=== PATIENT | male | born 1940 | race Caucasian/White ===

== ENCOUNTER 2021-08-23 14:47 | Inpatient (IN) | payer MEDICARE, SELFPAY ==
[2021-08-23] VITALS (67 sets, daily range): BP systolic 136–181; BP diastolic 52–77; PULSE 51–81; RESP 8–23; TEMP 36.8–36.9; O2SAT 88–99
--- NOTE | 2021-08-23 15:00 | RT.EKG_ITS ---
APPROVED REPORT Exam: Resting ECG Reason for Exam: rule out stroke Patient Location: E HR:62 bpm ECG Measurements Heart Rate 62 AXIS WY 172 P 71 QRSd 96 QRS 66 QT 387 T 66 QTc 393 Conclusion Sinus rhythm...normal P axis, V-rate 60- 99 Consider left ventricular hypertrophy...(S V1+R V5/V6) >3.50mV
--- NOTE | 2021-08-23 15:15 | DI.CT_ITS ---
Exam(s) CT HEAD WO EXAM: CT HEAD WO CLINICAL HISTORY: facial droop, hx of diplopia. TECHNIQUE: Imaging Protocol: Axial computed tomography images with coronal and sagittal reformatted images were created and reviewed COMPARISON: CR XR CHEST 1V IN DI DEPT from 08/23/2021 FINDINGS: There are no skull fractures nor fluid in the visualized paranasal sinuses. Main acute finding is an area of intra-axial hemorrhage in the left occipital lobe mild surrounding e ana rosa, this hemorrhage measuring approximately 2.7 cm wide by 2.2 cm AP. Area of abnormal hypodensity is seen in the opposite-right occipital lobe which is most probably related to prior infarct. Also area of abnormal hypodensity in the right middle cerebral artery territory involving the right tempor al and parietal lobes. In addition, there is abundant bilateral periventricular hypodensity consiste nt with chronic small vessel disease. No findings in the cerebellar hemispheres nor within the bob and midbrain. IMPRESSION: 1. There is a 2.7 x 2.2 area of intra-axial hemorrhage in the left occipital lobe. Also area of of i nfarction in the right occipital lobe and right middle cerebral artery territory, age indeterminate. 2. Abundant bilateral periventricular hypodensity consistent with chronic small vessel disease. Results called by myself to ER physician RADIATION DOSE DELIVERED: 816.78mGy.cm Total DLP DATA REPOSITORY: All CT scans at this facility are submitted to the National Radiology Data Registry (NRDR) Dose Index Registry (DIR) with the [employer] (ACR). RADIATION OPTIMIZATION: All CT scans at this facility use at least one of these dose optimization te chniques: automated exposure control; mA and/or kV adjustment per patient size (includes targeted exa ms where dose is matched to clinical indication); or iterative reconstruction.
--- NOTE | 2021-08-23 15:17 | DI.RAD_ITS ---
Exam(s) XR CHEST 1V IN DI DEPT EXAM: XR CHEST 1V IN DI DEPT CLINICAL HISTORY: cva. TECHNIQUE: 2D digital imaging was performed. COMPARISON: No exams were available for comparison FINDINGS: Single AP portable view. Heart size is upper normal. The mediastinum is not widened. Lungs are clear. No infiltrates nor obvious pleural effusions. IMPRESSION: No acute pulmonary findings on this single AP portable view of the chest. DATA REPOSITORY: RADIATION DOSE DELIVERED: All CT scans at this facility use at least one of these dose optimization techniques: automated exposure control; mA and/or kV adjustment per patient size (includes targeted e xams where dose is matched to clinical indication); or iterative reconstruction.
--- NOTE | 2021-08-23 15:34 | ED.GENADUL_ITS ---
Discharge Plan Disposition Patient Disposition: [facility] INPATIENT Condition: Serious Discharge Details Clinical Impression: Cerebrovascular accident, hemorrhagic Admit Date/Time: 08/23/21 20:17 Admit Provider: Satish Gentile Attending Provider: Satish Gentile Primary Care Provider: Unknown,Unknown ED Provider: Spike Torre Discharge Data Discharge Date/Time-TO BE ENTERED AT DEPARTURE: 08/23/21 21:42 Medical Decision Making NIH stroke score 1, partial palsy Pending CTA head and neck, unfortunately secondary to time constraints or status, MRI was available for this patient I discussed imaging with the radiologist who recommends CTA head and neck Patient is resting comfortably in room, extremely hard of hearing Agreeable to testing at this time, , in room and interpreting for patient Able to follow basic commands Declines any current diplopia, resolved yesterday per patient Predominant sinus this time and his right sided partial facial droop, specifically nasolabial fold and smile paralysis on right Pending labs EKG does not show evidence of dysrhythmia Resting comfortably in room, maintaining airway Care will be transitioned to Spike Torre MD at 1600 pending cta, labs, and disposition Medical Records Medical records reviewed: Yes I reviewed the patient's medical records. Lab Data Lab results reviewed: Yes I reviewed the patient's lab results. HPI General Date/Time Provider Initiated Documentation: 08/23/21 15:00 . HPI Narrative: this 81-year-old gentleman. Very hard of hearing presents with reports of diplopia which is reportedly horizontal yesterday morning when he awoke which resolved followed by right-sided facial droop today. He denies any weakness or dizziness. Denies any strength or sensation change. Denies any chest pain or shortness of breath. Patient states he otherwise feels well. He denies any difficulty swallowing or change in his speech. He is notably very hard of hearing, this is baseline for him. He denies any chest pain or palpitations. He denies prior history of similar symptoms in the past. He denies any recent head injuries. Denies any neck pain. Denies headache. Related Data Home Medications Medication Instructions Recorded Confirmed Unknown [No Known Home Meds] 08/23/21 08/23/21 Allergies Allergy/AdvReac Type Severity Reaction Status Date / Time No Known Drug Allergies Allergy Unverified 08/23/21 15:07 General Stated Complaint: CVA/TIA ANTONIO: 2 Review of Systems All systems reviewed & are unremarkable except as noted in HPI and below PFSH All Active Problems (Updated 08/24/21 @ 16:35 by Lissette Kimball MD) Diastolic dysfunction (Acute) Pulmonary hypertension (Acute) Aortic regurgitation (Acute) Noncompliance (Acute) Hypertension (Chronic) Stroke (Chronic) Hearing loss (Acute) Cerebrovascular accident, hemorrhagic (Acute) Surgical History Total replacement of hip Family History Mother No problems noted. Father Abdominal aortic aneurysm Sister Neoplasm LUNG Brother Neoplasm LUNG Grandfather No problems noted. Grandfather Neoplasm Grandmother No problems noted. Grandmother No problems noted. Brother Neoplasm THYROID Sister No problems noted. Brother No problems noted. Brother No problems noted. Son No problems noted. Son No problems noted. Son No problems noted. Social History Smoking/Tobacco Use Status: Never Smoking risk assessment performed?: Yes Alcohol Intake: never Substance use type: does not use Do you feel safe at home: Yes Do you feel safe in your relationship?: Yes Exam Const General: cooperative, comfortable and no acute distress HENMT Mouth: tongue normal, moist mucous membranes and no drooling Other: Right-sided facial droop, no eyebrow involvement Uvula midline, maintaining secretions Eyes Pupils: PERRL EOM: EOM intact bilaterally and No nystagmus Neck Other: No carotid bruits Resp Effort & Inspection: normal respiratory effort Auscultation: clear to auscultation bilaterally Cardio Rate: regular rate Rhythm: regular rhythm Heart Sounds: no murmurs GI Inspection: normal to inspection Neuro General: patient alert, patient oriented x3 and no focal motor deficits Cranial Nerves: PERRL, tongue midline, able to elevate shoulders bilaterally and no nystagmus Cognition: normal cognition Speech: speech normal Gait: normal gait Motor: strength 5/5 throughout and no pronator drift Sensory Exam: no sensory deficits noted Extrem General: normal to inspection Course Vital Signs Vital signs: Vital Signs Temperature 36.8 C 08/23/21 15:00 Pulse 70 08/23/21 15:00 Respiratory Rate 16 08/23/21 15:00 Blood Pressure 148/73 H 08/23/21 15:00 Pulse Oximetry 97 08/23/21 15:00 Temperature 36.8 C 08/23/21 15:00 Pulse 70 08/23/21 15:00 Respiratory Rate 16 08/23/21 15:00 Respiratory Effort 08/23/21 15:08 Respiratory Depth Normal 08/23/21 15:08 Respiratory Pattern Normal 08/23/21 15:08 Blood Pressure 148/73 H 08/23/21 15:00 Pulse Oximetry 97 08/23/21 15:00 Oxygen Delivery Method Room Air 08/23/21 15:00 Oxygen Flow Rate 0 08/23/21 15:00 Sign Out Sign Out Data: Sign Out Comment: pending ct, labs, and disposition Last updated by Alejandra Goss PA at 08/23/21 16:01
[2021-08-23 15:36] LABS: Abs Immature Grans 0.02 10^3/uL (0.0-0.06); Absolute Basophil Count 0.02 10^3/uL (0.0-0.2); Absolute Eosinophil Count 0.13 10^3/uL (0.0-0.7); Absolute Lymphocyte Count 1.26 10^3/uL (1.2-3.4); Absolute Monocyte Count 0.51 10^3/uL (0.1-0.8); Absolute Neutrophil Count 4.95 10^3/uL (1.2-6.7); Basophils % 0.3; Eosinophils % 1.9; HCT 39.1 % (40.0-50.0); HGB 13.2 g/dL (13.5-17.5); Immature Grans % 0.3; Lymphocytes % 18.3; MCH 33.2 pg (27.0-33.0); MCHC 33.8 % (32.0-36.0); MCV 98 fL (80-95); Monocytes % 7.4; Neutrophils % 71.8; Platelet Count 155 10^3/uL (130-400); RBC 3.98 10^6/uL (4.36-5.78); RDW 12.8 % (11.8-14.1); RDW-SD 45.8 fL; WBC 6.89 10^3/uL (4.4-10.8)
[2021-08-23 15:48] LABS: ALT 26 U/L (16-63); AST 29 U/L (15-37); Albumin 3.8 g/dL (3.4-5.0); Alkaline Phosphatase 88 U/L (46-116); Anion Gap 5.8 mmol/L (3-11); BUN 23 mg/dL (7-18); Bilirubin, Total 0.8 mg/dL (0.2-1.0); CO2 28.2 mmol/L (21.0-32.0); CREATININE 1.2 mg/dL (0.70-1.30); Calcium 8.6 mg/dL (8.5-10.1); Chloride 106 mmol/L (98-107); Estimated GFR 58.11 (mL/min/1.73m2); Glucose 105 mg/dL (74-106); Potassium 4.3 mmol/L (3.5-5.1); Sodium 140 mmol/L (136-145); Troponin I < 50 ng/L (<or=60)
--- NOTE | 2021-08-23 16:27 | ED.PROG_ITS ---
Date of service: 08/23/21 Time of Service: 17:12 Medical Decision Making 162 --care was signed out by OMAR Goss with plan to follow-up on CT imaging and labs. Labs reviewed and nondiagnostic. CT head interpreted by radiology: Left occipital hemorrhage. Will elevate head of bed to 30 degrees. Consider traumatic injury given he hit his head 2 days ago and symptoms started after that. [place] [facility] [place] to trauma service. Awaiting callback. CT images were sent for review. -- Pt reassessed: Mentating well. Patient has dysdiadochokinesia with past- pointing bilaterally and difficulty with rapid alternating movements. He denies pain. 1711 -- Still [place] [facility] again to request transfer. Clinical team is reviewing and will call back. 1817 --I received call back from [facility] [place] nurse practitioner who reviewed CT imaging and ED course with her attending, she recommends CTA to assess for stroke. She does not feel any immediate intervention is necessary for hemorrhage. 2014 --I spoke with Dr. Henry, On-call neurologist at [facility], reviewed ED presentation and course, she reviewed CT and CTA imaging, she notes no bed of elevated accept the patient in transfer and recommends admitting here for echocardiogram and MRI. She recommends maintaining systolic blood pressure less than 200. I called and spoke with on-call hospitalist, Dr. Gentile, discussed ED presentation course, he will admit the patient. He request bridging orders be placed. Lab Data Lab results reviewed: Yes I reviewed the patient's lab results. Labs: Laboratory Tests Range/Units 08/23/21 08/23/21 15:22 15:22 WBC (4.4-10.8) 10^3/uL 6.89 RBC (4.36-5.78) 10^6/uL 3.98 L Hgb (13.5-17.5) g/dL 13.2 L Hct (40.0-50.0) % 39.1 L MCV (80-95) fL 98 H MCH (27.0-33.0) pg 33.2 H MCHC (32.0-36.0) % 33.8 RDW (11.8-14.1) % 12.8 Plt Count (130-400) 10^3/uL 155 MPV (8.0-11.0) fL 10.0 Immature Gran % 0.3 Neutrophils % 71.8 Lymphocytes % 18.3 Monocytes % 7.4 Eosinophils % 1.9 Basophils % 0.3 Nucleated RBC % (0.0-0.3) % 0.0 Absolute Neutrophils (1.2-6.7) 10^3/uL 4.95 Absolute Lymphocytes (1.2-3.4) 10^3/uL 1.26 Absolute Monocytes (0.1-0.8) 10^3/uL 0.51 Absolute Eosinophils (0.0-0.7) 10^3/uL 0.13 Absolute Basophils (0.0-0.2) 10^3/uL 0.02 Sodium (136-145) mmol/L 140 Potassium (3.5-5.1) mmol/L 4.3 Chloride (98-107) mmol/L 106 Carbon Dioxide (21.0-32.0) mmol/L 28.2 Anion Gap (3-11) mmol/L 5.8 BUN (7-18) mg/dL 23 H Creatinine (0.70-1.30) mg/dL 1.2 Estimated GFR/1.73 m2 (mL/min/1.73m2) 58.11 Glucose (74-106) mg/dL 105 Calcium (8.5-10.1) mg/dL 8.6 Total Bilirubin (0.2-1.0) mg/dL 0.8 AST (15-37) U/L 29 ALT (16-63) U/L 26 Alkaline Phosphatase (46-116) U/L 88 Troponin I (<or=60) ng/L < 50 Total Protein (6.4-8.2) g/dL 7.0 Albumin (3.4-5.0) g/dL 3.8 Sign Out Sign Out Data: Sign Out Comment: pending ct, labs, and disposition Last updated by Alejandra Goss PA at 08/23/21 16:01 Discharge Plan Disposition Patient Disposition: [facility] INPATIENT Condition: Serious Discharge Details Clinical Impression: Cerebrovascular accident, hemorrhagic Primary Care Provider: Unknown,Unknown ED Provider: Spike Torre Home Meds and New Rx's Prescriptions: No Action No Known Home Meds 0RF
[2021-08-23 16:32] LABS: PTT Activated 25.3 sec (21.0-27.5); Prothrombin Time 9.9 sec (9.3-11.0)
--- NOTE | 2021-08-23 18:15 | DI.CT_ITS ---
Exam(s) CT BRAIN NECK CTA EXAM: CT BRAIN NECK CTA CLINICAL HISTORY: cva, recommendation from neurosx. TECHNIQUE: Imaging Protocol: Axial CT angiography was performed with multi-slice acquisition and mu lti-planar and 3D reconstructions. CONTRAST MATERIAL: Intravenous: Omnipaque 350 Contrast volume:85 ml COMPARISON: CT CT HEAD WO from 08/23/2021 FINDINGS: CT Head W contrast: Ventricles and Extra axial spaces: Normal in size and morphology for the patient's age. Hemorrhage: No change in area of acute hemorrhage in the posterior left occipital lobe. No new areas of hemorrhage. Cerebral parenchyma: Stable areas of old infarct in the right temporal and parietal lobes. White mat ter changes of small vessel disease. Mild atrophy. Midline shift: None. Brainstem/Cerebellum: Normal. Calvarium: Normal. Visualized Paranasal sinuses/Mastoids: Clear. Soft Tissues: Unremarkable. Enhancement: Normal. CTA Brain W: Internal Carotid Arteries: Petrous: Normal. Cavernous: Normal. Cerebral: Normal. Middle Cerebral Arteries: Right: No aneurysm, occlusion or significant stenosis. Left: No aneurysm, occlusion or significant stenosis. Anterior Cerebral Arteries: Right: No aneurysm, occlusion or significant stenosis. Left: No aneurysm, occlusion or significant stenosis. Posterior cerebral Arteries: Right: No aneurysm, occlusion or significant stenosis. Left: No aneurysm, occlusion or significant stenosis. Vertebral Arteries: Right: No aneurysm, occlusion or significant stenosis. Left: No aneurysm, occlusion or significant stenosis. Basilar Artery: No aneurysm, occlusion or significant stenosis. CTA Neck W: Common Carotid: Right: Calcification at the common carotid bulb. No aneurysm, occlusion or significant stenosis. Left: Calcification at the common carotid bulb. No aneurysm, occlusion or significant stenosis. External Carotid: Right: No aneurysm, occlusion or significant stenosis. Left: No aneurysm, occlusion or significant stenosis. Internal Carotid: Right: No aneurysm, occlusion or significant stenosis. Left: No aneurysm, occlusion or significant stenosis. Vertebral Artery: Right: No aneurysm, occlusion or significant stenosis. Left: No aneurysm, occlusion or significant stenosis. Lung Apices: Normal. Bones: Normal. Soft Tissues: Normal. IMPRESSION: 1. Normal CTA examination of the [place]. 2. Left left occipital acute hemorrhage. Old infarcts right temporal and parietal lobes. 3. Atherosclerotic calcification at the common carotid bulbs but no significant stenosis. RADIATION DOSE DELIVERED: 1,175.31mGy.cm Total DLP DATA REPOSITORY: All CT scans at this facility are submitted to the National Radiology Data Registry (NRDR) Dose Index Registry (DIR) with the [employer] (ACR). RADIATION OPTIMIZATION: All CT scans at this facility use at least one of these dose optimization te chniques: automated exposure control; mA and/or kV adjustment per patient size (includes targeted exa ms where dose is matched to clinical indication); or iterative reconstruction.
[2021-08-23] MEDS: Omnipaque 350 MG/ML 50 ML BTL IJ ×2 (18:35→18:37)
--- NOTE | 2021-08-23 19:15 | DI.VRAD_ITS ---
PROCEDURE INFORMATION: Exam: CT Angiography Head With Contrast, Arteriography Exam date and time: 08/23/2021 6:32 PM Age: 81 years old Clinical indication: Abnormal findings; Abnormal CT of the head TECHNIQUE: Imaging protocol: Computed tomography angiography of the head with contrast. Exam focused on the arteries. 3D rendering (Not supervised by radiologist): MIP and/or 3D reconstructed images were created by the technologist. Contrast material: OMNI 350; Contrast volume: 85 ml; Contrast route: INTRAVENOUS (IV); COMPARISON: CT HEAD WO 08/23/2021 4:03 PM FINDINGS: ANTERIOR CIRCULATION: Right internal carotid artery: Unremarkable. Intracranial segment is patent with no significant stenosis. No aneurysm. Right middle cerebral artery: Unremarkable. No occlusion or significant stenosis. No aneurysm. Right anterior cerebral artery: Unremarkable. No occlusion or significant stenosis. No aneurysm. Left internal carotid artery: Unremarkable. Intracranial segment is patent with no significant stenosis. No aneurysm. Left middle cerebral artery: Unremarkable. No occlusion or significant stenosis. No aneurysm. Left anterior cerebral artery: Unremarkable. No occlusion or significant stenosis. No aneurysm. POSTERIOR CIRCULATION: Right vertebral artery: Unremarkable. No occlusion or significant stenosis. No aneurysm. Left vertebral artery: Unremarkable. No occlusion or significant stenosis. No aneurysm. Basilar artery: Unremarkable. No occlusion or significant stenosis. No aneurysm. Right posterior cerebral artery: Unremarkable. No occlusion or significant stenosis. No aneurysm. Left posterior cerebral artery: Unremarkable. No occlusion or significant stenosis. No aneurysm. IMPRESSION: No large vessel stenosis or occlusion detected involving the major branches of the anterior or posterior intracranial circulation. PROCEDURE INFORMATION: Exam: CT Angiography Neck With Contrast Exam date and time: 08/23/2021 6:32 PM Age: 81 years old Clinical indication: Abnormal findings; Abnormal CT of the head TECHNIQUE: Imaging protocol: Computed tomography angiography of the neck with contrast. 3D rendering (Not supervised by radiologist): MIP and/or 3D reconstructed images were created by the technologist. Contrast material: OMNI 350; Contrast volume: 85 ml; Contrast route: INTRAVENOUS (IV); COMPARISON: CT HEAD WO 08/23/2021 4:03 PM FINDINGS: Right common carotid artery: No stenosis. No dissection or occlusion. Right internal carotid artery: Atherosclerotic calcifications are seen at the right carotid bifurcation and involving the origin of the right internal carotid artery with no evidence of 50% or greater stenosis of the extracranial segment. No dissection or occlusion. Right external carotid artery: No occlusion or stenosis of the origin. Left common carotid artery: No stenosis. No dissection or occlusion. Left internal carotid artery: Atherosclerotic calcifications are seen at the left carotid bifurcation and involving the origin of the left internal carotid artery with no evidence of 50% or greater stenosis of the extracranial segment. No dissection or occlusion. Left external carotid artery: No occlusion or stenosis of the origin. Right vertebral artery: No stenosis. No dissection or occlusion. Left vertebral artery: No stenosis. No dissection or occlusion. Soft tissues: Normal. No significant soft tissue swelling. Bones/joints: No acute fracture. IMPRESSION: Atherosclerotic calcifications are identified at the right and left carotid bifurcations and there is no evidence of 50% or greater stenosis involving the cervical segments of the right or left internal carotid arteries by NASCET criteria. REFERENCES: NASCET CRITERIA. The degree of internal carotid artery stenosis is based on NASCET criteria. Normal is no stenosis. Mild is less than 50% stenosis. Moderate is 50-69% stenosis. Severe is 70% to 99% stenosis. Total occlusion is no detectable patent lumen. Dictated and Authenticated by: Yfn Gage MD. Ordering:DEYSI Lala MD
[2021-08-23 20:57] LABS: Source Nasal/Nares
--- NOTE | 2021-08-23 21:54 | W.PM.HP.N ---
Assessment and Plan Assessment and plan (1) Cerebrovascular accident, hemorrhagic: Status: Acute Assessment and plan: He appears to have a spontaneous hemorrhagic stroke in his left occiput that is likely causing the diplopia and visual field cut which I think is on the right side. He will be admitted to the hospital for further evaluation with MRI, MRA and echocardiogram. He would not be anticoagulated. His blood pressure be monitored and we will try not to does have his blood pressure get too high. (2) Hearing loss: Status: Acute Assessment and plan: This seems to be a chronic problem which made difficult to the full history and exam. I do know if he has hearing aids. (3) Stroke: Status: Chronic Assessment and plan: He appears to have 2 older strokes and we will check an echocardiogram. He will be monitored for his cardiac rhythm. I will check an RPR. History of Present Illness History of Present Illness Chief Complaint: vision difficulty Narrative: This 81-year-old male came to the hospital with chief complaint of difficulty with his vision. He says that he bumped his head a couple days ago but did not lose consciousness. Yesterday and today he noted that his vision was blurry and fuzzy but that he also had some double vision. 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 He also noted today when he was trying to line up his thought he was having difficulty getting the blade adjusted properly because he had trouble seeing it. He also said that he did not think his left and right arms were not doing exactly what he wanted. He went to urgent care and was seen and referred here to the hospital because of right facial droop. He was evaluated here and found to have a left occipital hemorrhage that this looks acute as well as an old right occipital stroke and right parietal stroke. He has no recollection of any previous neurologic disease although he has had 3 to 4 years ago he said he was dizzy and possibly fainted and he wonders if he had a stroke then although he did not see a doctor at the time. He did not notice any problem with his swallowing or speech. He is very hard of hearing and is difficult to get him to follow directions. I do not know if he has had COVID vaccines. The screening questions says that he has been vaccinated. He states that he sometimes bumps his head in his barn because of roof is short. He said that he did not bump his head severely and the other day but sometimes when he does bump his head he feels more discomfort in the back of the neck afterwards. [facility] neuro-surgery, trauma service and neurology were consulted. No beds were available and they recommend admitting him here for further evaluation. Review of Systems Narrative: Much of the review of systems is not obtainable because of patient's very hard of hearing and is difficult for him to understand me. Constitutional Constitutional: Denies chills and Denies fever(s) Eyes Eyes: Reports blurry vision and Reports diplopia Cardiovascular Cardiovascular: Denies chest pain, Denies syncope, Denies rapid heart rate, Denies irregular heart rhythm and Denies dyspnea Respiratory Respiratory: Denies dyspnea Gastrointestinal Gastrointestinal: Reports heartburn Neurologic Neurologic: Denies syncope [facility] All Active Problems (Updated 08/23/21 @ 22:11 by Satish Gentile MD) Stroke (Chronic) Hearing loss (Acute) Cerebrovascular accident, hemorrhagic (Acute) Surgical History Total replacement of hip Family History Mother No problems noted. Father Abdominal aortic aneurysm Sister Neoplasm LUNG Brother Neoplasm LUNG Grandfather No problems noted. Grandfather Neoplasm Grandmother No problems noted. Grandmother No problems noted. Brother Neoplasm THYROID Sister No problems noted. Brother No problems noted. Brother No problems noted. Son No problems noted. Son No problems noted. Son No problems noted. Social History Smoking/Tobacco Use Status: Never Smoking risk assessment performed?: Yes Alcohol Intake: never Substance use type: does not use Do you feel safe at home: Yes Do you feel safe in your relationship?: Yes Meds Allergies and Home Medications Allergies Allergy/AdvReac Type Severity Reaction Status Date / Time No Known Drug Allergies Allergy Unverified 08/23/21 15:07 Home Medications Medication Instructions Recorded Confirmed Type Unknown [No Known Home Meds] 08/23/21 08/23/21 History Exam Const General: cooperative, healthy appearing, comfortable, no acute distress and not lethargic Nutritional Appearance: average body habitus Orientation: alert and awake HENMT Head: normal to inspection, normocephalic and atraumatic Ears: hearing grossly impaired Eyes General: appearance normal, both eyes and all related structures Visual Mohamud: abnormal by confrontation right visual field cut Alignment and Position: alignment normal and position normal Eyelids: eyelids normal Pupils: PERRL Neck Neck: normal visual inspection, no lymphadenopathy, no meningeal signs, trachea midline and no JVD Resp Auscultation: clear to auscultation bilaterally Cardio Rate: regular rate Rhythm: regular rhythm Heart Sounds: S1 normal, S2 normal, no gallops and no murmurs GI Palpation: soft, no hepatosplenomegaly, not firm, not rigid and nontender Skin General skin exam: no rashes or lesions noted Neuro Cognition: normal cognition Speech: speech normal Other: [id number] testing is poor bilaterally. He can elevate both arms against gravity without difficulty. 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 He can elevate both legs against gravity without difficulty. I cannot get him to do [id number] testing. Rapid alternating movements is a bit difficult for him to follow in terms of commands as when I show him index and thumb rapid alternating movements he quickly has opens his hands and close his hands rather than just doing 2 fingers. Extrem General: normal to inspection, no calf tenderness bilaterally, no clubbing and no edema Results Labs Result diagrams: 08/23/21 15:22 08/23/21 15:22 Labs: Laboratory Results - last 24 hr 08/23/21 08/23/21 08/23/21 15:22 15:22 15:55 WBC 6.89 RBC 3.98 L Hgb 13.2 L Hct 39.1 L MCV 98 H MCH 33.2 H MCHC 33.8 RDW 12.8 Plt Count 155 MPV 10.0 Immature Gran % 0.3 Neutrophils % 71.8 Lymphocytes % 18.3 Monocytes % 7.4 Eosinophils % 1.9 Basophils % 0.3 Nucleated RBC % 0.0 Absolute Neutrophils 4.95 Absolute Lymphocytes 1.26 Absolute Monocytes 0.51 Absolute Eosinophils 0.13 Absolute Basophils 0.02 PT 9.9 INR 1.0 APTT 25.3 Sodium 140 Potassium 4.3 Chloride 106 Carbon Dioxide 28.2 Anion Gap 5.8 BUN 23 H Creatinine 1.2 Estimated GFR/1.73 m2 58.11 Glucose 105 Calcium 8.6 Total Bilirubin 0.8 AST 29 ALT 26 Alkaline Phosphatase 88 Troponin I < 50 Total Protein 7.0 Albumin 3.8 COVID-19 Source 08/23/21 20:43 WBC RBC Hgb Hct MCV MCH MCHC RDW Plt Count MPV Immature Gran % Neutrophils % Lymphocytes % Monocytes % Eosinophils % Basophils % Nucleated RBC % Absolute Neutrophils Absolute Lymphocytes Absolute Monocytes Absolute Eosinophils Absolute Basophils PT INR APTT Sodium Potassium Chloride Carbon Dioxide Anion Gap BUN Creatinine Estimated GFR/1.73 m2 Glucose Calcium Total Bilirubin AST ALT Alkaline Phosphatase Troponin I Total Protein Albumin COVID-19 Source Nasal/Nares Last Vital Signs Temp 36.8 C 08/23/21 15:00 Pulse 51 L 08/23/21 21:16 Resp 17 08/23/21 20:10 BP 145/57 H 08/23/21 21:16 Pulse Ox 94 08/23/21 21:20
[2021-08-23] MEDS: Normal Saline Flush 10 ML SYR IVP (23:03)
[2021-08-24] VITALS (7 sets, daily range): BP systolic 113–145; BP diastolic 66–70; PULSE 50–63; RESP 16–18; TEMP 36.6–37.3; O2SAT 96–98
--- NOTE | 2021-08-24 | DI.MRI_ITS ---
Exam(s) MR BRAIN WO/W EXAM: MR BRAIN WO/W CLINICAL HISTORY: stroke. TECHNIQUE: Multiplanar multisequence MRI of the brain was performed. CONTRAST MATERIAL: IV Contrast: 14 ML of Dotarem contrast administered. COMPARISON: CT CT HEAD WO from 08/23/[address] BRAIN NECK CTA from 08/23/2021 FINDINGS: VENTRICLES AND EXTRA AXIAL SPACES: Normal in size and morphology for the patient's age. HEMORRHAGE: Focal rounded area of hemorrhage posterior left parietal occipital lobe as seen on CT.. CEREBRAL PARENCHYMA:Old infarcts right temporal and parietal lobes associated hemosiderin deposition. . Atrophy. Extensive white matter changes of small vessel disease. No mass lesion identified. MIDLINE SHIFT: None. BRAINSTEM/CEREBELLUM: Normal. ENHANCEMENT: No suspicious enhancement identified. VISUALIZED PARANASAL SINUSES/MASTOIDS: Clear. OTHER FINDINGS: None. IMPRESSION: Area of acute hemorrhage in the posterior left parietal occipital region. Old right temporal and parietal infarcts. Atrophy and severe white matter changes of small vessel disease. DATA REPOSITORY:
[2021-08-24 06:43] LABS: Abs Immature Grans 0.01 10^3/uL (0.0-0.06); Absolute Basophil Count 0.03 10^3/uL (0.0-0.2); Absolute Eosinophil Count 0.14 10^3/uL (0.0-0.7); Absolute Lymphocyte Count 1.26 10^3/uL (1.2-3.4); Absolute Monocyte Count 0.41 10^3/uL (0.1-0.8); Absolute Neutrophil Count 3.18 10^3/uL (1.2-6.7); Basophils % 0.6; Eosinophils % 2.8; HGB 12.9 g/dL (13.5-17.5); Immature Grans % 0.2; MCH 32.5 pg (27.0-33.0); MCHC 33.1 % (32.0-36.0); MCV 98 fL (80-95); MPV 10.1 fL (8.0-11.0); Monocytes % 8.2; Neutrophils % 63.2; Platelet Count 147 10^3/uL (130-400); RBC 3.97 10^6/uL (4.36-5.78); RDW 12.7 % (11.8-14.1); RDW-SD 45.6 fL; WBC 5.03 10^3/uL (4.4-10.8)
[2021-08-24 07:00] LABS: Anion Gap 10.1 mmol/L (3-11); BUN 20 mg/dL (7-18); C-Reactive Protein 0.61 mg/dL (0.0-0.3); CO2 25.9 mmol/L (21.0-32.0); CREATININE 1.1 mg/dL (0.70-1.30); Calcium 8.4 mg/dL (8.5-10.1); Chloride 106 mmol/L (98-107); Glucose 84 mg/dL (74-106); Potassium 3.8 mmol/L (3.5-5.1); Sodium 142 mmol/L (136-145)
[2021-08-24 07:10] LABS: ESR 6 mm/hr (0-20)
--- NOTE | 2021-08-24 10:15 | RT.EKG_ITS ---
APPROVED REPORT Exam: Resting ECG Reason for Exam: rule out stroke Patient Location: E HR:62 bpm ECG Measurements Heart Rate 62 AXIS IN 172 P 71 QRSd 96 QRS 66 QT 387 T 66 QTc 393 Conclusion Sinus rhythm...normal P axis, V-rate 60- 99 Consider left ventricular hypertrophy...(S V1+R V5/V6) >3.50mV
[2021-08-24] MEDS: Gadoterate meglumine 20 ML VIAL 14 ML IVP (10:49)
[2021-08-24] MEDS: Normal Saline Flush 10 ML SYR IVP (10:49)
[2021-08-24 10:57] LABS: Troponin I < 50 ng/L (<or=60)
--- NOTE | 2021-08-24 11:15 | PDOC.CMIN ---
- If Service Date Differs Date of service: 08/24/21 Time of Service: 11:15 Care Management Initial Assess REASON FOR HOSPITALIZATION:: Intracranial Hemorrhage, CVA PAST MEDICAL HISTORY/PAST SURGICAL HISTORY:: All Active Problems. Stroke (Chronic). Hearing loss (Acute). Cerebrovascular accident, hemorrhagic (Acute). Surgical History. Total replacement of hip PREVIOUS FUNCTIONAL STATUS/SOCIAL/FAMILY SUPPORTS:: Gavin lives in [place] with his , Aylin. Gavin is still very active, and works with [employer]. They have adult children, grandchildren and great grand children. He is independent with his ADL's at baseline. CURRENT FUNCTIONAL STATUS:: Gavin was sitting in his chair when CM met with him. He is hard of hearing, but alert and oriented. He stated that he feels like he does not need to be here, as he is not sure that anything is being done for him. CM reviewed his plan, which was to have an echo, MRI/MRA and see Neurology. He stated that he has had the echo and MRI/MRA. Per MD, Neurology is not available today, therefore it is recommended that he stay in order to see Neurology tomorrow. He stated that if he doesn't feel well at home tomorrow, he will come back. CM informed him that if he chooses to leave, it will be AMA, which is what he chose to do. He signed AMA paperwork and left. ADVANCE DIRECTIVES:: None on file. CM discussed this with him, and he is not interested in completing at this time. Has patient been provided with info about the portal/API?: Yes Did the patient sign up for the portal?: No CODE STATUS:: Full Code INSURANCE COVERAGE / FINANCIAL ISSUES:: [facility] commercial MCR replacement. CURRENT HOME/COMMUNITY SERVICES/EQUIPMENT:: No current services or equipement. PRIMARY CARE PHYSICIAN:: unknown POTENTIAL DISCHARGE NEEDS:: Evaluations for further needs, follow up appointments. PATIENT/FAMILY EDUCATION NEEDS:: Review discharge instructions and limitations, discussion of self care needs including ask me three and goals of care. ANTICIPATED BARRIERS TO DISCHARGE:: None identified at this time. TRANSPORTATION:: Via private vehicle by family. PLAN:: Gavin left AMA today. He was driven home via private vehicle by his . He will follow up with his PCP and discharge plan of care.
[2021-08-24 14:17] LABS: COVID-19 PCR Negative (Negative)
[2021-08-24 14:49] LABS: Troponin I < 50 ng/L (<or=60)
--- NOTE | 2021-08-24 16:21 | W.PM.DS.N ---
Date of service: 08/24/21 Time of Service: 16:21 DS: Diagnosis Discharge Diagnosis (1) Cerebrovascular accident, hemorrhagic: Status: Acute (2) Hypertension: Status: Chronic (3) Aortic regurgitation: Status: Acute (4) Pulmonary hypertension: Status: Acute (5) Diastolic dysfunction: Status: Acute (6) Hearing loss: Status: Acute (7) Noncompliance: Status: Acute Discharge Plan Disposition Patient Disposition: AGAINST MEDICAL ADVICE Condition: Serious Discharge Details Reason For Visit: Intracranial Hemorrhage,CVA Admit Date/Time: 08/23/21 20:17 Admit Provider: Satish Gentile Attending Provider: Satish Gentile Primary Care Provider: Unknown,Unknown Hospital Course Hospital Course: Mr Carson is an 81 year old male with PMHx of hearing loss who was a patient on [facility] hospitalist service from 08/23/21 until leaving [facility] on 08/24/21 having presented with diplopia and right sided facial droop and having a CT of the head in the ED show a left occipital hemorrhage (2.7 cm x 2.2 cm). There was also evidence of several old strokes and chronic small vessel disease. CTA head/neck showed a normal [place], atherosclerotic calcifications in the bilateral common carotid bulbs, but no stenosis. [place] [facility] [place] were available. Neurosurgery did not feel that neurosurgical intervention would be indicated. Neurology recommended obtaining an MRI w/w/o contrast. This revealed an area of acute hemorrhage at the posterior left parietal occipital region, old right temporal and parietal infarcts and severe white matter changes of small vessel disease. The patient also underwent an echocardiogram, showing LVEF of 57%, grade I LV diastolic dysfunction, no wall motion abnormalities, moderate aortic regurgitation, and RVSP of 33 mmHg. The patient chose to leave [facility] today, not waiting for an in-house neurology evaluation. He verbalized that he might if his bleed worsens, but feels he will do better at home than at the hospital where everyone is irritating him. The patient was offered to be started on blood pressure medications, but refused. A referral is being sent to a local neurologist should the patient decide to follow up. Care for patient as well as completion of his discharge summary today took 60 minutes. Home Meds and New Rx's Prescriptions: No Action No Known Home Meds 0RF Discharge Instructions Referrals: MICHAEL WHARTON NP [ NON-[facility] STAFF PHYSICIAN] - Andie Quintana MD [ [facility] STAFF PHYSICIAN] - Activity:: Activity as Tolerated Equipment/Supplies:: No Equipment Needed Diet:: As Tolerated Discharge Orders Discharge Orders: Discharge Order (Routine); Ordered 08/24/21 Ordered By: Lissette Kimball Discharge Data Discharge Date/Time-TO BE ENTERED AT DEPARTURE: 08/24/21 15:53 DS: Summary Time Spent with Patient providing and/or coordinating discharge services: Greater than 30 minutes Status at Discharge Functional status at discharge: independent ambulation Overall status at discharge: patient is progressing back to baseline Mental Status: mental status grossly normal Speech and Movement: speech and movement normal Mood: irritable mood Affect: anxious affect Exam Narrative Exam Narrative: General: Pleasant impulsive elderly male who is [place], able to move all 4 extremities, + dysdiadokynesis RUE HEENT: No obvious facial droop on my exam, EOMI, MMM Heart: RRR Lungs: CTAB Abdomen: soft, nontender, nondistended Extremities: no edema BLEs, 5/5 strength throughout, steady on feet Psych Mental Status: mental status grossly normal Speech and Movement: speech and movement normal Mood: irritable mood Affect: anxious affect DS: Data Vitals/I&O Vitals and I&O: Vital Signs Temperature 37.3 C 08/24/21 11:33 Temperature Source Temporal Artery Scan 08/24/21 11:33 Pulse 55 L 08/24/21 11:33 Pulse Rhythm Regular 08/24/21 08:44 Pulse 54 L 08/23/21 21:10 Respiratory Rate 16 08/24/21 11:33 Respiratory Effort 08/24/21 08:44 Respiratory Depth Normal 08/24/21 08:44 Respiratory Pattern Normal 08/24/21 08:44 Blood Pressure 145/70 H 08/24/21 11:33 Blood Pressure Mean 79 08/23/21 21:16 Pulse Oximetry 98 08/24/21 11:33 Oxygen Delivery Method Room Air 08/24/21 11:33 Oxygen Flow Rate 0 08/24/21 11:33 Pain Level 0 08/24/21 11:33 Comment 08/24/21 06:16 Intake & Output 08/23/21 08/24/21 08/24/21 23:59 11:59 23:59 Intake Total 110 / 110 190 / 690 500 / 690 Output Total 220 / 220 Balance -110 / -110 190 / 690 500 / 690 Weight 68.039 kg Intake: IV Oral 100 / 100 180 / 680 500 / 680 Output: Urine 220 / 220 Other: Urine Color Yellow Yellow Urine Appearance Clear Clear Urine Odor Normal Normal Comment void x 1, unmeasured. Stool Size Moderate Small Stool Characteristics Formed Soft Hard Brown Voiding Methods Urinal Toilet Data Completed and Pending Completed studies during hospitalization [Text1]: CT head w/o contrast 08/23/21: 1. There is a 2.7 x 2.2 area of intra-axial hemorrhage in the left occipital lobe.? Also area of of infarction in the right occipital lobe and right middle cerebral artery territory, age indeterminate. 2. Abundant bilateral periventricular hypodensity consistent with chronic small vessel disease. CXR 08/23/21: No acute pulmonary findings on this single AP portable view of the chest. CTA head/neck: 1. Normal CTA examination of the [place]. 2. Left left occipital acute hemorrhage.? Old infarcts right temporal and parietal lobes. 3. Atherosclerotic calcification at the common carotid bulbs but no significant stenosis.? MRI brain w/w/o contrast 08/24/21: Area of acute hemorrhage in the posterior left parietal occipital region. Old right temporal and parietal infarcts. Atrophy and severe white matter changes of small vessel disease. Echo LV systolic function is nml. LVEF is 57%. Grade 1 Diastolic dysfunction. No wall motion abnormalities. Moderate aortic regurgitation. RVSP of 33 mmHg. Labs on day of discharge: Labs from last 24 hours 08/24/21 08/24/21 08/24/21 14:20 10:39 05:30 WBC RBC Hgb Hct MCV MCH MCHC RDW Plt Count MPV Immature Gran % Neutrophils % Lymphocytes % Monocytes % Eosinophils % Basophils % Nucleated RBC % Absolute Neutrophils Absolute Lymphocytes Absolute Monocytes Absolute Eosinophils Absolute Basophils ESR PT INR APTT Sodium Potassium Chloride Carbon Dioxide Anion Gap BUN Creatinine Estimated GFR/1.73 m2 Glucose Calcium Troponin I < 50 < 50 C-Reactive Protein Syphilis Serology Pending COVID-19 Source SARS-CoV-2 (PCR) 08/24/21 08/24/21 08/24/21 05:30 05:30 05:30 WBC 5.03 RBC 3.97 L Hgb 12.9 L Hct 39.0 L MCV 98 H MCH 32.5 MCHC 33.1 D RDW 12.7 Plt Count 147 MPV 10.1 Immature Gran % 0.2 Neutrophils % 63.2 Lymphocytes % 25.0 Monocytes % 8.2 Eosinophils % 2.8 Basophils % 0.6 Nucleated RBC % 0.0 Absolute Neutrophils 3.18 Absolute Lymphocytes 1.26 Absolute Monocytes 0.41 Absolute Eosinophils 0.14 Absolute Basophils 0.03 ESR 6 PT INR APTT Sodium 142 Potassium 3.8 Chloride 106 Carbon Dioxide 25.9 Anion Gap 10.1 BUN 20 H Creatinine 1.1 Estimated GFR/1.73 m2 >= 60.00 Glucose 84 Calcium 8.4 L Troponin I C-Reactive Protein 0.61 H Syphilis Serology COVID-19 Source SARS-CoV-2 (PCR) 08/23/21 08/23/21 20:43 15:55 WBC RBC Hgb Hct MCV MCH MCHC RDW Plt Count MPV Immature Gran % Neutrophils % Lymphocytes % Monocytes % Eosinophils % Basophils % Nucleated RBC % Absolute Neutrophils Absolute Lymphocytes Absolute Monocytes Absolute Eosinophils Absolute Basophils ESR PT 9.9 INR 1.0 APTT 25.3 Sodium Potassium Chloride Carbon Dioxide Anion Gap BUN Creatinine Estimated GFR/1.73 m2 Glucose Calcium Troponin I C-Reactive Protein Syphilis Serology COVID-19 Source Nasal/Nares SARS-CoV-2 (PCR) Negative PFSH All Active Problems (Updated 08/24/21 @ 16:35 by Lissette Kimball MD) Diastolic dysfunction (Acute) Pulmonary hypertension (Acute) Aortic regurgitation (Acute) Noncompliance (Acute) Hypertension (Chronic) Stroke (Chronic) Hearing loss (Acute) Cerebrovascular accident, hemorrhagic (Acute) Surgical History Total replacement of hip Family History Mother No problems noted. Father Abdominal aortic aneurysm Sister Neoplasm LUNG Brother Neoplasm LUNG Grandfather No problems noted. Grandfather Neoplasm Grandmother No problems noted. Grandmother No problems noted. Brother Neoplasm THYROID Sister No problems noted. Brother No problems noted. Brother No problems noted. Son No problems noted. Son No problems noted. Son No problems noted. Social History Smoking/Tobacco Use Status: Never Smoking risk assessment performed?: Yes Alcohol Intake: never Substance use type: does not use Do you feel safe at home: Yes Do you feel safe in your relationship?: Yes
[2021-08-25 10:12] LABS: Syphilis Serology (RPR) Negative (Negative)
== END 2021-08-24 15:53 | disposition left against medical advice (07) | DRG 66 ==
LOC: ER 21:26 → MS 21:43
PROVIDERS: Internal Medicine; Physician Assistant; Admitting Provider Family Medicine; Emergency Provider Student in an Organized Health Care Education/Training Program; Visit Provider Family Medicine
DX: I61.9 Nontraumatic intracerebral hemorrhage, unspecified (principal); H53.2 Diplopia; R29.810 Facial weakness; Z86.73 Personal history of transient ischemic attack (TIA), and cerebral infarction without residual deficits; I10 Essential (primary) hypertension; I27.20 Pulmonary hypertension, unspecified; I35.0 Nonrheumatic aortic (valve) stenosis; I51.89 Other ill-defined heart diseases; Z91.19 Patient's noncompliance with other medical treatment and regimen; I65.23 Occlusion and stenosis of bilateral carotid arteries
CPT/HCPCS: 36415; 70496; 70498; 70553; 80048; 80053; 85652; 87635; 93005; 96374; 99285; U0005; 70450; 71045; 84484; 85025; 85610; 85730; 86140; 86592; 93010; 93306; 99223; 99239; Q9967